=== PATIENT | male | born 1995 | race Caucasian/White ===

== ENCOUNTER 2018-06-28 08:45 | Emergency (ER) | payer OTHER, SELFPAY ==
[2018-06-28 08:46] VITALS: BP 114/83; BP 118/52; PULSE 116; PULSE 95; RESP 20; TEMP 38.2; O2SAT 100; BMI 20.7
[2018-06-28 09:26] LABS: Absolute Lymphocyte Count 0.63 X10^3/ul (0.83-4.51); Absolute Neutrophil Count 5.3 X10^3/uL (2.0-7.7); Basophil# 0.01 X10^3/uL; Basophil% 0.2 % (0-1); Eosinophil# 0.01 X10^3/uL; Eosinophils% 0.2 % (0-5); Hematocrit 45.6 % (40-54); Hemoglobin 16.2 g/dl (13.0-16.5); Lymphocyte # 0.63 X10^3/ul (4.0); Mean Corp Hgb Conc 35.5 g/gl (32-36); Mean Corpuscular Hgb 29.1 pg (27.0-32.0); Mean Platelet Vol. 10.5 fl (6.2-12.0); Monocyte# 0.35 X10^3/uL; Monocyte% 5.5 % (0-10); Neutrophil # 5.32 X10^3/uL (2.7-7.7); Neutrophil % 83.9 % (47-70); Platelet Count 130 K/mm3 (150-450); RBC Distribution Width CV 12.7 % (11.6-14.6); RBC Distribution Width SD 38.2 fl (35.1-43.9); Red Blood Count 5.56 M/mm3 (4.6-6.2); White Blood Count 6.3 K/mm3 (4.4-11.0)
[2018-06-28 09:27] LABS: POSITIVE COUNT NO; POSITIVE DIFFERENTIAL NO; POSITIVE MORPHOLOGY NO
[2018-06-28 09:46] LABS: Anion Gap 12 (5-15); BUN 11 mg/dL (7-18); BUN/Creat Ratio 8.8 RATIO (10-20); Calcium,Total 8.7 mg/dL (8.5-10.1); Chloride 103 mmol/L (98-107); Creatinine, Serum 1.25 mg/dL (0.70-1.30); EST Glomerular Filtration Rate 78 mL/min (>60); Est Glom Filt Rate - Afr Amer 94 mL/min (>60); Estimated Creatinine Clearance 87.69 ml/min; Glucose 126 mg/dL (74-106); Potassium 3.6 mmol/L (3.5-5.1); Sodium Level 138 mmol/L (136-145)
[2018-06-28] MEDS: Ketorolac 15 MG/ML Vial IV (10:02)
[2018-06-28] MEDS: 0.9% Normal Saline 1,000 ML 1000 ML IV (10:02)
[2018-06-28] MEDS: Ondansetron 4 MG/2 ML Vial IV (10:02)
--- NOTE | 2018-06-28 12:09 | ED.DCSUM_ITS ---
History of Present Illness Chief Complaint: Cold Sx Detail of Chief Complaint: Fever, aches and vomiting Informant: Patient, Family Onset: Days Context: Sudden Onset Timing: Continuous, Waxes and wanes Quality: GI symptoms with fever and aches Location: Generalized Current Severity: Moderate Maximum Severity: Severe Worsened by: Movement and vomiting Relieved by: Nothing Associated Symptoms: Bifrontal headache without photophobia, neck pain or neck stiffness Narrative: Patient is a 22-year-old male brought to the emergency department for bifrontal headache, myalgias arthralgias, documented fever greater than 101.0 ?F, nausea and vomiting. Last bowel movement yesterday and formed. He does report thirst, dry mouth and decreased urine output. He denies rash. He denies URI symptoms. He denies chest pain, shortness of breath or difficulty breathing. Prior similar symptoms: No Recent Illness/Hospitalization: No - Past Medical History (1) No pertinent past medical history Status: Acute Past Medical History - Allergies and Home Meds Allergies/Adverse Reactions: Allergies No Known Allergies Allergy (Verified 06/28/18 08:46) Primary Care Physician: Care Physician,No Primary [Primary Care Provider] - Past Medical History: None Surgical History: no surgical history Lives: With Family Smoking Status: Never smoker Drugs: None Review of Systems General: Reports: Chills, Fever, Malaise, Sweats. Denies: Weight loss Eyes: Denies: Visual changes - left, Visual changes - right, Visual changes - bilaterally, Blurred vision - left, Blurred vision - right, Blurred Vision - bilaterally, Diplopia, -, - ENT: Reports: - - He does report dry mouth. Denies: Rhinorrhea, Sore throat Cardiovascular: Denies: Chest pain, Palpitations Gastrointestinal: Reports: Abdominal pain, Nausea, Vomiting. Denies: Diarrhea, Constipation, Melena, Hematochezia Genitourinary: Reports: - - Does report decreased urine output. Denies: Dysuria, Hematuria, Frequency Musculoskeletal: Reports: Myalgias, Arthralgias, Back pain. Denies: Neck pain, Swelling Neurological: Reports: Headache. Denies: Weakness, Parasthesia, Numbness Hematologic: Denies: Easy bruising, Easy bleeding Allergy: Denies: Uticaria Physical Exam Vital Signs/Narrative: Vital Signs Temp Pulse Resp BP Pulse Ox 06/28/18 08:46 100.8 F H 95 20 H 114/83 H 100 Inital Vital Signs reviewed: Yes General: Well nourished, Well developed, Acute Distress Head: Normocephalic, Atraumatic Eyes: Perrl, EOMI. Negative for: Pale conjunctiva, Scleral icterus ENT: No rhinorrhea, TM's clear, Dry mucous membranes Neck: Supple, Nontender, No lymphadenopathy, No JVD, - Cardiovascular: Regular rate, Regular rhythm, No murmurs, Normal S1, Normal S2 Respiratory: No distress, CTA bilaterally, Chest nontender Abdomen: Soft, Nondistended, No masses, Tender, Hypoactive bowel sounds. Negative for: Hepatomegaly, Splenomegaly, Pulsatile mass Back: Nontender Extremities: Nontender, No edema Skin: No rash, Pallor. Negative for: Cyanosis, Jaundice Neurological: Alert, Oriented x3, Cranial nerves II-XII grossly intact, Normal Strength, Normal Sensation, Normal DTR Psychological: Normal affect, Normal Mood Diagnostic/Tx/Re-eval Laboratory Results 06/28/18 06/28/18 09:15 09:15 WBC 6.3 RBC 5.56 Hgb 16.2 Hct 45.6 MCV 82.0 MCH 29.1 MCHC 35.5 RDW 12.7 RDW Differential 38.2 Plt Count 130 L MPV 10.5 Immature Gran % (Auto) 0.200 Neut % (Auto) 83.9 H Lymph % (Auto) 10.0 L Spencer % (Auto) 5.5 Eos % (Auto) 0.2 Baso % (Auto) 0.2 Absolute Neuts (auto) 5.3 Absolute Lymphs (auto) 0.63 L Total Counted Not Reportable Sodium 138 Potassium 3.6 Chloride 103 Carbon Dioxide 23.0 Anion Gap 12 BUN 11 Creatinine 1.25 Estim Creat Clear Calc 87.69 Est GFR (MDRD) Af Amer 94 Est GFR (MDRD) Non-Af 78 BUN/Creatinine Ratio 8.8 L Glucose 126 H Calcium 8.7 - Medical Decision Making Patient's history and physical exam is consistent with viral infection. Because he has been ill for 5 days and clinically is dehydrated IV was established and he received 1 L normal saline. He did receive Zofran with slight improvement. He subsequently was medicated with Reglan and morphine since he did not have any relief of his head discomfort with 15 mg Toradol IV push. Basic metabolic panel was obtained to assess his electrolytes specifically CO2 and sodium as well as renal function. ED Disposition - Plan for ED Patient: Disposition: Acute Care Hospital [facility] Diagnosis: Abdominal pain with vomiting, Fever and chills, Mild dehydration, Viral cephalgia Instructions: ED Viral Syndrome, ED Nausea Vomiting Prescriptions: Hydrocodone Bitart/Apap 5-325 [[place] 5MG-325MG] 1 tab PO Q6H PRN PRN 3 Days #10 tab PRN Reason: Pain Metoclopramide [Reglan] 10 mg PO 4X/DAY PRN #20 tab PRN Reason: Headache Referrals: Care Physician,No Primary [Primary Care Provider] - Deep Roldan MD [STAFF PHYSICIAN] - 3-5 Days if not improving Additional Instructions: You were assigned to Dr. Deep Roldan since you do not have a physician listed.
[2018-06-28] MEDS: Metoclopramide 10 MG/2 ML Vial 5 MG IV ×2 (12:25→13:41)
[2018-06-28] MEDS: Morphine 4 MG/ML Syringe IV ×2 (12:25→13:40)
[2018-06-28 13:15] VITALS: BP 121/77; PULSE 118; RESP 16; TEMP 38.2; O2SAT 96
--- NOTE | 2018-06-28 13:24 | ED.RN ---
PHYSICIAN ADVISED THAT PT IS STILL WITH NAUSEA AND VOMITING AFTER REGLAN AND MORPHINE.
[2018-06-28 15:23] VITALS: BP 108/51; PULSE 105; RESP 16; TEMP 37.3; O2SAT 98
[2018-06-28 15:40] VITALS: BP 105/51; PULSE 110; RESP 16; TEMP 37.3; O2SAT 97
== END 2018-06-28 15:42 | disposition short-term general hospital (02) ==
PROVIDERS: Emergency Provider Emergency Medicine
DX: R10.9 Unspecified abdominal pain (principal); R11.2 Nausea with vomiting, unspecified; R50.9 Fever, unspecified; E86.0 Dehydration; R51 Headache
CPT/HCPCS: 80048; 85025; 96374; 96375; 96376; 99282; J7030; A4216; J2405

== ENCOUNTER 2024-12-28 16:29 | Emergency (ER) | payer OTHER, SELFPAY ==
[2024-12-28 16:30] VITALS: BP 112/77; PULSE 101; RESP 18; TEMP 36.6; O2SAT 100
--- NOTE | 2024-12-28 16:50 | EKG12_ITS ---
Test Reason : SYNC Blood Pressure : */* mmHG Vent. Rate : 90 BPM Atrial Rate : 90 BPM P-R Int : 156 ms QRS Dur : 86 ms QT Int : 336 ms P-R-T Axes : 79 76 71 degrees QTcB Int : 411 ms Normal sinus rhythm Normal ECG Confirmed by NEVA BAIG, MEGAN ([id number]), photo editor ANDREW REDDING ([id number]) on 12/29/2024 8:08:33 AM Referred By: Confirmed By: MEGAN HOOKS MD
--- NOTE | 2024-12-28 17:31 | EDS_ITS ---
HPI History of Present Illness Chief Complaint: Syncope Detail of Chief Complaint: Syncope and collapse [facility] Medical History (Updated 12/28/24 @ 17:[address] Joe Root MD) Depression Anxiety Home Medications ?Medication ?Instructions ?Recorded ?Last Taken ?Type NK 12/28/24 Unknown History Allergy/AdvReac Type Severity Reaction Status Date / Time No Known Allergies Allergy Verified 12/28/24 16:31 Social History Smoking Status: Never smoker EXAM Physical Exam Const Vital Signs: 12/28/24 16:30 12/28/24 16:34 Temperature 97.8 F Temperature Source Oral Pulse Rate 101 H Respiratory Rate 18 Respiratory Effort Normal Respiratory Pattern Normal Blood Pressure 112/77 Blood Pressure Mean 88 Pulse Ox 100 Oxygen Delivery Method Room Air Discharge Plan Triage Chief Complaint: Syncope ED Provider: Joe Root Dx/Rx/DC Orders Clinical Impression: Syncope, vasovagal, Sinus tachycardia seen on monitoring manager Instructions: ED Fainting, Vagal Reaction Prescriptions: No Action NK Primary Care Provider: Care Physician,No Primary Referrals: Deep Roldan MD [Med Staff - Active Staff, Family Practice] - 1-2 Weeks Care Physician,No Primary [Primary Care Provider, Medical] Activity Restrictions/Additional Instructions: Since you did not have a doctor listed you were referred to Dr. Deep Roldan for follow-up Print Language: Japanese Disposition Disposition: Home, Self Care
--- NOTE | 2024-12-28 17:31 | EX.ED.DYSGE1 ---
HPI History of Present Illness Chief Complaint: Syncope Detail of Chief Complaint: Syncope and collapse Informant: patient Onset/Context/Timing Onset: Today and Hours Context: Sudden Onset Timing: Intermittent Quality: Syncope consistent with vasovagal Location: Occurred at work Current Severity: Gone Maximum Severity: Severe Worsened by: Patient states has been standing for an hour. Relieved by: Not applicable Associated Symptoms Associated Symptoms: Nausea, warm sensation, pallor and diaphoresis Narrative Narrative: Patient 29-year-old male. Had a syncopal sewed 1 year ago. It was attributed to anxiety. He was at work today. He been standing for an hour. He went to walk and became lightheaded, felt warm and change in his vision bilaterally followed by pallor and diaphoresis and collapse. There was no seizure activity. There was no incontinence of urine or stool. He denies chest pain, pressure, tightness or heaviness. He denies pleuritic pain. He denies shortness of breath or difficulty breathing. He has no history of VTE. He has no known history of rheumatic fever, heart murmur, SBE or MVP. He denies abdominal pain. He denies recent black or maroon-colored stool. He denies recent illness. He denies change in diet. He does not Dors thirst or dry mouth Prior similar symptoms: Yes (1 year ago) Recent Illness/Hospitalization: No PFSH PFSH Medical History Depression Anxiety Home Medications ?Medication ?Instructions ?Recorded ?Last Taken ?Type NK 12/28/24 Unknown History Allergy/AdvReac Type Severity Reaction Status Date / Time No Known Allergies Allergy Verified 12/28/24 16:31 Social History Smoking Status: Never smoker ROS ROS ED Constitutional Constitutional ED: Denies chills, fever(s), subjective or sweats Eyes Eyes: Reports blurry vision bilateral; Denies change in vision or diplopia ENT ENT ED: Denies ear pain, rhinorrhea or sore throat Cardiovascular Cardiovascular: Denies chest pain, orthopnea, palpitations, paroxysmal nocturnal dyspnea or racing heartbeat Respiratory/Chest Respiratory/Chest: Denies cough, dyspnea, dyspnea on exertion, orthopnea or paroxysmal nocturnal dyspnea Gastrointestinal Gastrointestinal: Denies abdominal pain, diarrhea, nausea or vomiting Genitourinary Genitourinary ED: Denies dysuria, hematuria or urinary frequency Musculoskeletal Musculoskeletal: Denies arthralgias or myalgias Integumentary Denies rash Neurologic Neurologic: Denies headache(s) or paresthesias Psychiatric Psychiatric: Denies anxiety or depression Endocrine Endocrinology: Denies cold intolerance or heat intolerance Hematologic/Lymphatic Hematologic/Lymphatic: Reports systems reviewed and no addt'l complaints, except as documented EXAM Physical Exam Const Vital Signs: 12/28/24 16:30 12/28/24 16:34 Temperature 97.8 F Temperature Source Oral Pulse Rate 101 H Respiratory Rate 18 Respiratory Effort Normal Respiratory Pattern Normal Blood Pressure 112/77 Blood Pressure Mean 88 Pulse Ox 100 Oxygen Delivery Method Room Air Positive well nourished and well developed General Appearance ED: well developed and NAD; Negative for pallor HEENT Reports moist mucous membranes HEENT Narrative: Head is atraumatic normocephalic. Ears normal. Nares patent Eyes PERRL and EOMs intact bilaterally General Eye ED: Negative for pale conjunctiva or scleral icterus Neck no lymphadenopathy, supple and no JVD Chest Wall inspection of chest normal and palpation of chest normal Resp normal respiratory effort and clear to auscultation bilaterally Cardio regular rate, regular rhythm, S1 normal heart sound, S2 normal heart sound and no murmurs GI normal to inspection, nondistended, normoactive bowel sounds, non-tender, non-distended and no masses; Negative for hepatosplenomegaly Back/Spine no CVA tenderness Extremity normal to inspection General Extremety ED: Negative for edema or tenderness General Extremity: Negative for edema Neuro oriented x3, CN's II-XII intact bilaterally and no sensory deficits noted Neuro Narrative: There is no dysmetria. There is no clonus or Babinski sign Sensorium / Orientation: alert Motor Exam: strength 5/5 throughout Psych mental status grossly normal Skin no rashes or lesions noted, no wounds and skin turgor normal General Skin Exam: elasticity normal; Negative for jaundice or pallor MDM MDM MDM Narrative Medical decision making narrative: History and physical is consistent with a vasovagal syncopal episode. Since he has never had an EKG will obtain EKG to assess for WPW, Sweeney Long Ganong syndrome, but got to prolonged QT. Patient was on the monitor. She had no dysrhythmia. She had no ectopy either. He and his mother were informed of the results. He was discharged home in stable condition. Discharge Plan Triage Chief Complaint: Syncope ED Provider: Joe Root Dx/Rx/DC Orders Clinical Impression: Syncope, vasovagal, Sinus tachycardia seen on pet walker Instructions: ED Fainting, Vagal Reaction Prescriptions: No Action NK Primary Care Provider: Care Physician,No Primary Referrals: Deep Roldan MD [Med Staff - Active Staff, Family Practice] - 1-2 Weeks Care Physician,No Primary [Primary Care Provider, Medical] Activity Restrictions/Additional Instructions: Since you did not have a doctor listed you were referred to Dr. Deep Roldan for follow-up Print Language: Maori Disposition Disposition: Home, Self Care
[2024-12-28 17:45] VITALS: BP 105/70; PULSE 108; RESP 12; TEMP 36.4; O2SAT 100
== END 2024-12-28 17:46 | disposition home or self-care (01) ==
PROVIDERS: Emergency Provider Emergency Medicine; Visit Provider Emergency Medicine
DX: R55 Syncope and collapse (principal); R00.0 Tachycardia, unspecified
CPT/HCPCS: 93005; 99285; A4216

== ENCOUNTER → 2025-01-01 | Outpatient (CLI) | payer OTHER, SELFPAY ==
--- OUTSIDE RECORDS SUMMARY | 2025-01-01 17:15 | XMS RPT_ITS | CCD ---
Author Organization [facility] Care Team Providers Care Superintendent Institution Name Role Phone VIOLETTE BETHEA Unavailable Unavailable REFERRED, SELF Unavailable Unavailable [place] VIOLETTE Gale Unavailable Unavailable Results Test Name Value Interpretation Reference Range Facility Progress Noteon 10-04-2016 Deposit Clerk Authentication Interface Message Text Patient ID: Parker Peres is a 20 y.o. male. His chief complaint(s)include: Anxiety.Assessment:1. Adjustment disorder with anxious moodPlan:Parker was seen today for anxiety.Diagnoses and all orders for this visit:Adjustment disorder with anxious moodNo Follow-up on file.phq 10 (down from 12)--> Likely a depression component as well although Ibelieve anxiety is the main symptom.Continue Zoloft at 50 mg qdaySubjective:The patient's reason for visit is anxiety. AnxietyMonths Duration: 1 monthCharacterized by: Depressed Mood and AnxietySymptoms: feeling anxious and irritabilitySymptoms: no self-harm and no suicidal thoughtsAssociated Symptoms: increased sleepAssociated Symptoms: no anhedoniaPast Medical/Psychiatric History: anxietyPrevious Treatments: SSRICurrent Treatments: SSRIImprovement with Treatment: Greatly SignificantCompliance: GoodPrimary Care Review of SystemsObjective:Physical ExamConstitutional: He appears well. He is active. No distress.HENT:Head: Atraumatic.Right Ear: Tympanic membrane normal.Left Ear: Tympanic membrane normal.Mouth/Throat: Mucous membranes are moist.Eyes: Conjunctivae are normal.Cardiovascular: Normal rate and regular rhythm.No murmur heard.Pulmonary/Chest: Breath sounds normal. There is normal air entry.Neurological: He is alert. He has normal strength. No cranial nerve deficit. Hedisplays a negative Romberg sign. Coordination normal. Normal [facility] Encounters Encounter Date Encounter Type Care Provider Facility Start: 10-04-2016 End: 10-04-2016 Ambulatory VIOLETTE BETHEA [facility] Payers Date Payer Category Payer Policy ID Unknown [id number] Summary Purpose Family History No Family History Records Found Advance Directives No Advanced Directives Records Found Additional Source Comments (unrecognized sect ion and content) No Status Records Found INFORMATION SOURCE (unrecogn ized section and content) DATE CREATED AUTHOR 09/25/2017 [facility] FOR RECORDS PERTAINING TO PATIENTS WHO ARE OR HAVE BEEN ENROLLED IN A CHEMICAL DEPENDENCY/SUBSTANCEABUSE PROGRAM, SOME INFORMATION MAY BE OMITTED. This clinical summary was aggregated from multiple sources. Caution should be exercised in using it in the provision of clinical care. This summary normalizes information from multiple sources, and as a consequence, information in this document may materially change the coding, format and clinical context of patient data. In addition, data may be omitted in some cases. CLINICAL DECISIONS SHOULD BE BASED ON THE PRIMARY CLINICAL RECORDS. [employer] provides no warranty or guarantee of the accuracy or completeness of information in this document.
[2025-01-01 19:22] LABS: Hematocrit 45.5 % (40-54); Hemoglobin 15.6 g/dL (13.0-16.5); Immature Granulocytes Count 0.020 X10^3/uL (0.0-0.0); Mean Corp Hgb Conc 34.3 g/dL (32-36); Mean Corpuscular Volume 87.5 fL (80-94); Mean Platelet Vol. 10.2 fl (6.2-12.0); NRBC Flagged by Analyzer 0 % (0-5); Platelet Count 240 K/mm3 (150-450); RBC Distribution Width CV 12.3 % (11.6-14.6); RBC Distribution Width SD 39.2 fl (35.1-43.9); Red Blood Count 5.20 M/mm3 (4.6-6.2); White Blood Count 6.3 K/mm3 (4.4-11.0)
[2025-01-01 19:36] LABS: Anion Gap 13 (5-15); BUN 15 mg/dL (4-19); BUN/Creat Ratio 17.2 RATIO (10-20); Calcium,Total 9.1 mg/dL (7.6-11.0); Carbon Dioxide 24.2 mmol/L (21.0-32.0); Chloride 103 mmol/L (98-108); Glucose 91 mg/dL (70-99); Potassium 3.9 mmol/L (3.3-5.1)
== END | disposition home or self-care (01) ==
LOC: MFPLAB 16:20
PROVIDERS: PCP Family Medicine; Visit Provider Family Medicine
DX: F41.9 Anxiety disorder, unspecified (principal); R55 Syncope and collapse
CPT/HCPCS: 36415; 80048; 84443; 85025